=== PATIENT | male | born 1965 | race African-American/Black ===

== ENCOUNTER 2016-11-21 12:59 | Inpatient (IN) | payer MEDICAID, OTHER ==
[~2016-11-21] VITALS: Ht 172.7 cm; Wt 76.5 kg
--- NOTE | 2016-11-21 13:33 | NUR ---
PT BIB [facility] S/P OD ON SLEEPING PILLS. PT IS LETHARGIC BUT ORIENTED X4. PT IS ABLE TO ANSWER QUESTIONS APPROPRIATELY. REPORTS TAKING SLEEPING PILLS BUT DOES NOT KNOW NAME OR QUANTITY. RESP EVEN UNLABORED, O2 SAT WNL ON ROOM AIR. SKIN WARM NONDIAPHORETIC. PUPILS PERRLA. IN ER BED 08 ON MONITOR.
[2016-11-21 13:45] LABS: BASOPHILS # (AUTO) 0.1 /CMM (0.0-0.2); BASOPHILS % (AUTO) 2.8 % (0.0-2.0); EOSINOPHILS % (AUTO) 0.7 % (0.0-6.0); HEMATOCRIT 45 % (39-51); HEMOGLOBIN 14.6 g/dL (13.5-17.5); LYMPHOCYTES # (AUTO) 0.8 /CMM (0.8-4.8); LYMPHOCYTES % (AUTO) 18.6 % (20.0-44.0); MEAN CORPUSCULAR HEMOGLOBIN 26 PG (26.0-33.0); MEAN CORPUSCULAR HGB CONC 33 g/dl (31.0-36.0); MEAN CORPUSCULAR VOLUME 79 fL (80-96); MONOCYTES # (AUTO) 0.2 /CMM (0.1-1.30); MONOCYTES % (AUTO) 4.9 % (2.0-12.0); NEUTROPHILS # (AUTO) 3.3 /CMM (1.8-8.9); PLATELET COUNT (AUTO) 228 /CMM (150-450); RDW COEFFICIENT OF VARIATION 13.3 (11.5-15.0); RED BLOOD CELL COUNT(AUTO) 5.67 MIL/uL (4.5-6.0); WHITE BLOOD COUNT (AUTO) 4.4 K/uL (4.3-11.0)
[2016-11-21 13:56] LABS: CALCIUM, SERUM 8.9 mg/dL (8.5-10.1); CREATININE 1.1 mg/dL (0.6-1.3); POTASSIUM 4.2 mmol/L (3.5-5.1)
[2016-11-21 14:02] LABS: ALBUMIN 4.2 g/dL (3.4-5.0); BILIRUBIN,DIRECT 0.1 mg/dL (0.0-0.2); BILIRUBIN,TOTAL 0.3 mg/dL (0.2-1.0); TOTAL PROTEIN, SERUM 7.9 g/dL (6.4-8.2)
[2016-11-21 14:03] LABS: SALICYLATE 1.5 mg/dL (2.8-20.0)
--- NOTE | 2016-11-21 15:53 | NUR ---
PT MARKEDLY MORE AWAKE. A/OX4. PT ABLE TO URINATE IN URINAL ON COMMAND. SAMPLE SENT TO LAB.
[2016-11-21 16:15] LABS: APPEARANCE,URINE Clear (CLEAR); BILIRUBIN,URINE Negative (NEGATIVE); BLOOD, URINE Negative Ery/uL (NEGATIVE); COLOR,URINE Yellow (YELLOW); KETONES,URINE Negative (NEGATIVE); LEUKOCYTE ESTERASE ,URINE Negative (NEGATIVE); NITRITE, URINE Negative (NEGATIVE); PROTEIN,URINE 100 mg/dl (NEGATIVE); UGLUCOSE Negative (NEGATIVE)
[2016-11-21 16:34] LABS: BACTERIA,URINE None seen /HPF (None Seen); RBC,URINE 0-2 /HPF (0-2); SQUAMOUS EPITHELIAL CELL,UR Few /HPF (None Seen); WBC,URINE 0-2 /HPF (0-3)
--- NOTE | 2016-11-21 16:52 | NUR ---
CALLED NURSING SUP. FOR TELE BED
--- NOTE | 2016-11-21 17:09 | NUR ---
BOO PAGED, DR.SAM Martin BOAT CREW DECK HAND
--- NOTE | 2016-11-21 17:47 | NUR ---
REPORT GIVEN TO [facility] CONDUCTOR FOR ADMISSION
--- NOTE | 2016-11-21 17:50 | NUR ---
DR VALENZUELA AT BEDSIDE. PT REMAINS A/OX4, NOT ALTERED, VSS.
--- NOTE | 2016-11-21 18:10 | NUR ---
PT TRANSPORTED TO [facility] IN STABLE CONDITION VIA ACLS PROTOCOL
[2016-11-21 18:15] VITALS: BP 142/95
[2016-11-21 18:27] VITALS: BP 142/95
[2016-11-21] MEDS ORDERED: ONDANSETRON HCL/PF 4 MG/2 ML VIAL IVP PRN (18:30)
[2016-11-21] MEDS ORDERED: HYDROCODONE/APAP 5/325MG 1 EACH TABLET PO PRN (18:30)
[2016-11-21] MEDS ORDERED: MAG HYDROX/AL HYDROX/SIMETH 30 ML UDC PO PRN (18:30)
[2016-11-21] MEDS ORDERED: ACETAMINOPHEN 325 MG TABLET PO PRN (18:30)
[2016-11-21] MEDS ORDERED: MAGNESIUM HYDROXIDE 30 ML UDC PO PRN (18:30)
[2016-11-21] MEDS ORDERED: Z GUARD REMEDY 2 OZ OINT TP PRN (18:30)
[2016-11-21] MEDS ORDERED: ZOLPIDEM TARTRATE 5 MG TABLET PO PRN (18:30)
--- NOTE | 2016-11-21 18:30 | NUR ---
CUT OFF [place] [place] NOTE RECEIVED PATIENT FROM ER WITH DX AMS [facility] DOCTOR SA, .PATIENT LETHARGIC , BUR EASILY UPON HIS EYES AND TRYING TO ANSWER QUESTIONS , PLACED ON TELE SR , VS TAKEN, BELONGING CHECKED, HOSPITAL ORIENTATION DONE, BED IN LOWEST AND LOCKED POSITION BED ALARM PLACED FOR PATIENT SAFETY, LT FA HL INTACT AND PATENT WILL ENDORSE CARE WITH NEXT SHIFT RN
--- NOTE | 2016-11-21 19:25 | NUR ---
RN MS INITIAL NOTE PT RECEIVED IN NO ACUTE DISTRESS. PT IS A/O X3 AND LETHARGIC AND ABLE TO MAKE NEEDS KNOWN. PT HAS A LEFT FA 20G IV LINE THAT WILL HAVE NS 1L @75CC STARTED. WILL ENSURE SAFETY AND COMFORT MEASURES DURING SHIFT. WILL CONTINUE TO MONITOR FOR ANY CHANGES DURING THE SHIFT.
[2016-11-21 20:00] VITALS: BP 129/90
[2016-11-21] MEDS: IV NS 0.9% 1,000 ML IV PRN (20:03)
[2016-11-22 04:00] VITALS: BP 111/66
--- NOTE | 2016-11-22 06:06 | NUR ---
RN MS CLOSING NOTE PT REMAINS IN NO ACUTE DISTRESS. A/O X3 AND ABLE TO MAKE NEEDS KNOWN. PT HAS A LFA 20G THAT IS DRY CLEAN AND INTACT. SAFETY AND COMFORT MEASURES ENSURED DURING THE SHIFT. ALL DUE ORDERS WERE CARRIED OUT. WILL ENDORSE CARE TO AM NURSE.
[2016-11-22 07:28] LABS: BASOPHILS % (AUTO) 0.3 % (0.0-2.0); EOSINOPHILS # (AUTO) 0.1 /CMM (0.0-0.7); EOSINOPHILS % (AUTO) 2.1 % (0.0-6.0); HEMATOCRIT 41 % (39-51); HEMOGLOBIN 13.6 g/dL (13.5-17.5); LYMPHOCYTES # (AUTO) 1.5 /CMM (0.8-4.8); LYMPHOCYTES % (AUTO) 27.5 % (20.0-44.0); MEAN CORPUSCULAR HEMOGLOBIN 27 PG (26.0-33.0); MEAN CORPUSCULAR HGB CONC 33 g/dl (31.0-36.0); MEAN CORPUSCULAR VOLUME 80 fL (80-96); MONOCYTES # (AUTO) 0.5 /CMM (0.1-1.30); MONOCYTES % (AUTO) 9.4 % (2.0-12.0); NEUTROPHILS # (AUTO) 3.2 /CMM (1.8-8.9); NEUTROPHILS % (AUTO) 60.7 % (43.0-81.0); PLATELET COUNT (AUTO) 194 /CMM (150-450); RDW COEFFICIENT OF VARIATION 14.5 (11.5-15.0); RED BLOOD CELL COUNT(AUTO) 5.12 MIL/uL (4.5-6.0); WHITE BLOOD COUNT (AUTO) 5.4 K/uL (4.3-11.0)
[2016-11-22] MEDS ORDERED: PANTOPRAZOLE 40 MG TABLET.DR PO SCH (07:30)
--- NOTE | 2016-11-22 07:42 | NUR ---
RN INITIAL NOTE PATIENT RECEIVED IN BED, AWAKE, ALERT AND ORIENTED. ABLE TO MAKE NEEDS KNOWN. NO S/S OF PAIN OR DISCOMFORT. DENIES PAIN AT THIS TIME. RESPIRATIONS ARE EVEN AND UNLABORED. SATING WELL ON ROOM AIR. NO S/S OF RESPIRATORY DISTRESS OR SOB. IV SITE FLUSHED, PATENT. SKIN IS WARM AND DRY TO TOUCH. SAFETY PRECAUTIONS IMPLEMENTED, BED IN LOCKED, LOW POSITION WITH TWO SIDE RAILS UP. CALL LIGHT AND BELONGINGS WITHIN EASY REACH. WILL CONTINUE TO MONITOR.
[2016-11-22 07:53] LABS: CALCIUM, SERUM 8.6 mg/dL (8.5-10.1); MAGNESIUM 2.1 mg/dL (1.8-2.4); PHOSPHORUS 3.1 mg/dL (2.5-4.9); POTASSIUM 4.1 mmol/L (3.5-5.1)
[2016-11-22] MEDS: IV NS 0.9% 1,000 ML IV PRN (07:53)
[2016-11-22 08:00] VITALS: BP 112/66
[2016-11-22 08:21] LABS: THYROID STIMULATING HORMONE 0.533 uIU/mL (0.358-3.74)
--- NOTE | 2016-11-22 12:42 | NUR ---
PER PRIMARY RN PATIENT VERBALIZING DOESNT WANT TO LIVE ANYMORE,LETHALITY ASSESSMENT INITIATED.NOTIFIED PRIMARY MD PER CRISIS TEAM NEED TO BE SEEN BY PSYCHIATRIST FIRST.DR. DALEY NOTIFIED WILL SEE PATIENT TODAY PRIOR TO DISCHARGE.WILL CONTINUE TO MONITOR.
--- NOTE | 2016-11-22 13:00 | NUR ---
dr. weiner seen patient and requested social studies teacher to to talk to patient for placement issue.no further order at this time.
--- NOTE | 2016-11-22 15:04 | NUR ---
Social service consult requested by [facility] for homelessness and suicidal ideations. Pt. is a 51 year old male who was hospitalized at [facility] for Encephalopathy. TERENCE and field case manager met with pt. bedside. Pt. is alert and oriented x 4. Pt. was sitting upright on his bed during the assessment. Pt. states he has been homeless for a while. 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 Pt. 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 Pt. has been living in and out of [place] since then. Pt. had an apartment back then and was evicted after he lost his job. Pt. appears depressed and expressed suicidal ideations. Pt. would like voluntary psychiatric hospitalization at this time. Pt. denies homicidal ideations and visual/auditory hallucinations at this time. Pt. denies using drugs and alcohol. Pt. receives General relief monthly in the amount of $251 and food stamps. TERENCE informed pt. she will refer him to [facility] for psychiatric hospitalization. TERENCE called [facility] and spoke to Mary who requested for TERENCE to fax her the clinicals. TERENCE faxed clinicals to Mary in Intake at . Mary informed TERENCE she is waiting for discharges but might have a bed available at [facility].
[2016-11-22 16:00] VITALS: BP 120/65
--- NOTE | 2016-11-22 16:24 | NUR ---
TERENCE contacted Lauren in intake at [facility] regarding bed availability. She informed TERENCE that she is waiting to hear back from [place] and will contact TERENCE as soon as there is a bed available. TERENCE informed her that she is leaving in a few minutes and will have case reviewer Adilia follow up with her. TERENCE informed case reviewer Adilia to follow up with Lauren at [facility] intake and gave her the contact information to Lauren .
--- NOTE | 2016-11-22 20:25 | NUR ---
RN NOTES PT IS AWAKE ALERT ORIENTED X 3 ABLE TO MAKE KNOWN NEEDS. NO ACUTE RESP DISTRESS. AMBULATE TO THE BATHROOM BEFORE HE LEAVES. DENIES PAIN. KEPT CLEAN AND DRY. CHARGE NURSE CALLED [facility] SINCE THE PATIENT WILL GOING THERE FIRST BEFORE GOING TO [facility] REPORT GIVEN TO EBONY FROM [facility] MADE AWARE REGARDING PT STATUS. VS TAKEN TEMP 98.5 PULSE 60 RESP 16 BP 125/83. SATING 99%. ASSISTED PT BY CRUSHER ASSEMBLER TROUGH THE CAB IN STABLE CONDITION.
== END 2016-11-22 20:20 | disposition home or self-care (01) | DRG 52 ==
LOC: ER 13:01 → TELE1 17:17 → MEDSG1 20:19
DX: G92 Toxic encephalopathy (principal); F32.9 Major depressive disorder, single episode, unspecified; F99 Mental disorder, not otherwise specified; F19.10 Other psychoactive substance abuse, uncomplicated; Z59.0 Homelessness
CPT/HCPCS: 36415; 70450-TC; 71010-TC; 80048-TC; 80061-TC; 80076-TC; 80305; 81000-TC; 83735-TC; 84100-TC; 84443-TC; 85025-TC; 87081-TC; A4606; G0480; J7030; Z7610